=== PATIENT | female | born 1980 | race Caucasian/White ===

== ENCOUNTER 2017-12-25 13:55 | Inpatient (IN) | payer OTHER ==
[~2017-12-25] VITALS: Ht 172.7 cm; Wt 73.9 kg
[2017-12-25] MEDS ORDERED: SODIUM CHLORIDE 0.9% 1,000 ML IV ONE (14:20)
[2017-12-25] MEDS ORDERED: SODIUM CHLORIDE FLUSH 10ML SYR IVF ONE (14:30)
[2017-12-25] MEDS ORDERED: MORPHINE SULFATE 4 MG/ML, 1ML ONE ×2 (14:55→16:25)
[2017-12-25 14:58] LABS: BASOPHILS # (AUTO) 0.03 x10^3/uL (0-0.1); BASOPHILS % (AUTO) 0 % (0-1); EOSINOPHILS # (AUTO) 0.02 x10^3/uL (0-0.4); EOSINOPHILS % (AUTO) 0 % (1-7); LYMPHOCYTES # (AUTO) 1.51 x10^3/uL (1-3.4); LYMPHOCYTES % (AUTO) 10 % (22-44); MD NO; MEAN CORPUSCULAR HEMOGLOBIN 31.7 pg (27.0-34.8); MEAN CORPUSCULAR VOLUME 96.1 fL (80-100); MEAN PLATELET VOLUME 9.6 fL (7.4-10.4); MONOCYTES # (AUTO) 1.09 x10^3/uL (0.2-0.8); MONOCYTES % (AUTO) 7 % (2-9); NEUTROPHILS # (AUTO) 13.28 x10^3/uL (1.8-6.8); NEUTROPHILS % (AUTO) 83 % (42-75); PLATELET COUNT 155 x10^3/uL (130-400); RED BLOOD COUNT 4.37 x10^6/uL (3.82-5.3); RED CELL DISTRIBUTION WIDTH 12.7 % (9.6-15.2)
[2017-12-25] MEDS: MORPHINE SULFATE 4 MG/ML, 1ML IVPush PRN ×2 (15:01→16:28)
[2017-12-25 15:06] LABS: ALBUMIN 3.3 g/dL (3.4-5.0); ANION GAP 12 mmol/L (5-15); CALCIUM 8.9 mg/dL (8.5-10.1); CHLORIDE 107 mmol/L (98-107)
[2017-12-25 15:07] LABS: CREATININE 0.51 mg/dL (0.55-1.02)
[2017-12-25] MEDS ORDERED: MORPHINE SULFATE 4 MG/ML, 1ML IVPush ONE (16:30)
[2017-12-25 18:44] VITALS: BP 110/74
[2017-12-25] MEDS ORDERED: METHYLERGONOVINE 0.2 MG/ML IM ONE (18:59)
[2017-12-25] MEDS ORDERED: OXYTOCIN 10 UNITS/ML, 1ML ONE ×2 (18:59→19:55)
[2017-12-25] MEDS ORDERED: SILVER NITRATE STICK TP ONE (18:59)
[2017-12-25] MEDS ORDERED: VASOPRESSIN 20 UNIT/ML, 1ML ONE (18:59)
[2017-12-25] MEDS ORDERED: MISOPROSTOL 200 MCG TABLET ONE (18:59)
[2017-12-25] MEDS ORDERED: MIDAZOLAM 1 MG/ML, 2ML ONE (19:04)
[2017-12-25] MEDS ORDERED: FENTANYL PF 100 MCG/2ML ONE (19:05)
[2017-12-25] MEDS ORDERED: PROPOFOL 10 MG/ML, 20ML ONE (19:07)
[2017-12-25] MEDS ORDERED: ROCURONIUM 10MG/ML,5ML ONE (19:07)
[2017-12-25] MEDS ORDERED: SUCCINYLCHOLINE 20 MG/ML, 10ML ONE (19:07)
[2017-12-25] MEDS ORDERED: CEFAZOLIN 1,000 MG ONE ×2 (19:08)
[2017-12-25] MEDS ORDERED: LIDOCAINE 1%, 50ML ONE (19:23)
[2017-12-25] MEDS ORDERED: DEXAMETHASONE 4 MG/ML, 1ML ONE (19:33)
[2017-12-25] MEDS ORDERED: ONDANSETRON ODT 8 MG ONE (19:33)
[2017-12-25] MEDS ORDERED: KETOROLAC 30 MG/1 ML ONE (19:56)
[2017-12-25] MEDS ORDERED: OXYTOCIN 10 UNITS/ML, 1ML IV ONE (20:00)
[2017-12-25] MEDS ORDERED: ACETAMINOPHEN 325 MG TABLET PO PRN (20:00)
[2017-12-25] MEDS ORDERED: morphine SULFATE 10 MG/ML, 1ML IV PRN ×2 (20:00→21:30)
[2017-12-25] MEDS ORDERED: METOPROLOL 1 MG/ML, 5ML IV PRN (20:00)
[2017-12-25] MEDS ORDERED: FENTANYL PF 100 MCG/2ML IV PRN (20:00)
[2017-12-25] MEDS ORDERED: MEPERIDINE/PF 25MG/0.5ML IVPush PRN (20:00)
[2017-12-25] MEDS ORDERED: EPHEDRINE 50 MG/ML, 1ML IVPush PRN (20:00)
[2017-12-25] MEDS ORDERED: LABETALOL 5MG/ML, 20ML IV PRN (20:00)
[2017-12-25] MEDS ORDERED: KETOROLAC 30 MG/1 ML IVPush ONE (20:00)
[2017-12-25] MEDS ORDERED: hydrALAzine 20 MG/ML, 1ML IV PRN (20:00)
[2017-12-25] MEDS ORDERED: OXYcodone 5 MG/5 ML ORAL.SOL UDC PO PRN (20:00)
[2017-12-25] MEDS ORDERED: ALBUTEROL SULFATE 2.5 MG/3 ML NPPB PRN (20:00)
[2017-12-25] MEDS ORDERED: PROMETHAZINE 25 MG/ML, 1ML IV PRN (20:00)
[2017-12-25] MEDS ORDERED: ONDANSETRON 2MG/ML, 2ML IVPush PRN (20:00)
[2017-12-25] MEDS ORDERED: PROMETHAZINE 25 MG SUPP PR ONE (21:30)
[2017-12-25] MEDS ORDERED: ONDANSETRON 2MG/ML, 2ML IV PRN (21:30)
[2017-12-25] MEDS ORDERED: KETOROLAC 30 MG/1 ML IV PRN (21:30)
[2017-12-25] MEDS ORDERED: PROMETHAZINE 25 MG/ML, 1ML IV ONE (21:30)
[2017-12-25] MEDS ORDERED: PROMETHAZINE 12.5 MG SUPP PR ONE (21:30)
[2017-12-25] MEDS ORDERED: OXYcodone/APAP 5/325MG TABLET PO PRN (21:30)
[2017-12-25] MEDS ORDERED: OXYC-302 PO (21:33)
[2017-12-25] MEDS ORDERED: IBUP-1222 PO (21:33)
== END 2017-12-25 22:30 | disposition home or self-care (01) | DRG 770 ==
LOC: ED 16:22 → EDIP 17:24 → 4NOR 18:16 → OBSVTOIN 21:24
PROVIDERS: ADMIT Obstetrics & Gynecology; ATTEND Obstetrics & Gynecology
PROC: 10D17Z9 Manual Extraction of Products of Conception, Retained, Via Natural or Artificial Opening (ICD-10-PCS; principal; 2017-12-25 19:00)
DX: O03.4 Incomplete spontaneous abortion without complication (principal)
CPT/HCPCS: 36415; 76801; 76815; 80048; 82040; 85014; 85018; 85025; 86850; 86900; 86901; 88300; 88305; G0378; J0690; J1100; J1885; J2250; J2704; J3010; J3490; Q0162; J0330; J2210; J2590; J7030

== ENCOUNTER → 2019-09-05 | Outpatient (CLI) | payer OTHER ==
[~2019-09-05] MED LIST: IBUP-1222 PO; OXYC-302 PO
[2019-09-05 14:20] LABS: MEAN CORPUSCULAR HEMOGLOBIN 32.5 pg (27.0-34.8); MEAN CORPUSCULAR HGB CONC 33.1 g/dL (32.4-35.8); MEAN CORPUSCULAR VOLUME 98.4 fL (80-100); MEAN PLATELET VOLUME 9.6 fL (7.4-10.4); PLATELET COUNT 125 x10^3/uL (130-400); RED BLOOD COUNT 4.03 x10^6/uL (3.82-5.3); RED CELL DISTRIBUTION WIDTH 13.5 % (9.6-15.2)
== END | disposition home or self-care (01) ==
LOC: CFH 09:44
PROVIDERS: ATTEND Student in an Organized Health Care Education/Training Program
DX: Z34.82 Encounter for supervision of other normal pregnancy, second trimester (principal); Z3A.00 Weeks of gestation of pregnancy not specified
CPT/HCPCS: 36415; 82950; 85027; 86592

== ENCOUNTER 2019-11-20 10:18 | Outpatient (CLI) | payer OTHER ==
[~2019-11-20] VITALS: Ht 172.7 cm; Wt 81.8 kg
[2019-11-20 10:45] VITALS: BP 118/64
== END 2019-11-20 11:17 | disposition home or self-care (01) ==
LOC: LDOP 10:18
PROVIDERS: ATTEND Student in an Organized Health Care Education/Training Program
DX: O36.8130 Decreased fetal movements, third trimester, not applicable or unspecified (principal); O46.93 Antepartum hemorrhage, unspecified, third trimester; Z3A.38 38 weeks gestation of pregnancy
CPT/HCPCS: 59025; 99211; G0463

== ENCOUNTER 2019-11-24 05:49 | Inpatient (IN) | payer OTHER ==
[~2019-11-24] VITALS: Ht 172.7 cm; Wt 84.0 kg
[2019-11-24] MEDS ORDERED: OXYTOCIN 30U/ 0.9% NaCL 500ML 500 ML IV ONE (05:51)
[2019-11-24] MEDS ORDERED: D5%-LACTATED RINGERS 1,000 ML IV SCH (05:51)
[2019-11-24 05:59] VITALS: BP 121/78
[2019-11-24] MEDS ORDERED: TERBUTALINE 1 MG/ML, 1ML IVPush PRN (06:00)
[2019-11-24] MEDS ORDERED: CALCIUM CARBONATE 500 MG TAB.CHEW PO PRN ×2 (06:00→19:30)
[2019-11-24] MEDS ORDERED: ONDANSETRON 2MG/ML, 2ML IVPush PRN (06:00)
[2019-11-24] MEDS ORDERED: FENTANYL PF 100 MCG/2ML IV PRN (06:00)
[2019-11-24] MEDS ORDERED: TERBUTALINE 1 MG/ML, 1ML SQ PRN (06:00)
[2019-11-24] MEDS ORDERED: PREN-3 PO (06:05)
[2019-11-24] MEDS: LACTATED RINGERS 1,000 ML IV SCH ×2 (06:12→14:55)
[2019-11-24] MEDS ORDERED: NEWBORN KIT ONE (06:28)
[2019-11-24] MEDS ORDERED: MISOPROSTOL 25 MCG TABLET VG PRN (06:30)
[2019-11-24 06:33] LABS: BASOPHILS # (AUTO) 0.03 x10^3/uL (0-0.1); BASOPHILS % (AUTO) 1 % (0-1); EOSINOPHILS # (AUTO) 0.02 x10^3/uL (0-0.4); EOSINOPHILS % (AUTO) 0 % (1-7); LYMPHOCYTES # (AUTO) 1.26 x10^3/uL (1-3.4); LYMPHOCYTES % (AUTO) 17 % (22-44); MD NO; MEAN CORPUSCULAR HEMOGLOBIN 32.9 pg (27.0-34.8); MEAN CORPUSCULAR HGB CONC 33.9 g/dL (32.4-35.8); MEAN CORPUSCULAR VOLUME 97.1 fL (80-100); MEAN PLATELET VOLUME 8.8 fL (7.4-10.4); MONOCYTES % (AUTO) 11 % (2-9); NEUTROPHILS # (AUTO) 5.13 x10^3/uL (1.8-6.8); NEUTROPHILS % (AUTO) 71 % (42-75); PLATELET COUNT 107 x10^3/uL (130-400); RED BLOOD COUNT 3.98 x10^6/uL (3.82-5.3); RED CELL DISTRIBUTION WIDTH 12.8 % (9.6-15.2)
[2019-11-24] MEDS ORDERED: MISOPROSTOL 25 MCG TABLET ONE (06:34)
[2019-11-24] MEDS ORDERED: OXYTOCIN 30U/ 0.9% NaCL 500ML 500 ML ONE ×2 (06:34→19:13)
[2019-11-24] MEDS ORDERED: OXYTOCIN 30U/ 0.9% NaCL 500ML 500 ML IV PRN (10:18)
[2019-11-24] MEDS ORDERED: MISOPROSTOL 200 MCG TABLET ONE (11:37)
[2019-11-24] MEDS ORDERED: LIDOCAINE 1%, 20ML ONE (11:37)
[2019-11-24] MEDS ORDERED: FENTANYL PF 100 MCG/2ML ONE ×2 (17:21→18:20)
[2019-11-24] MEDS: FENTANYL PF 100 MCG/2ML IVPush PRN ×2 (17:25→18:26)
[2019-11-24] MEDS ORDERED: IBUPROFEN 600 MG TABLET ONE (19:13)
[2019-11-24] MEDS: IBUPROFEN 600 MG TABLET PO PRN (19:14)
[2019-11-24] MEDS: OXYTOCIN 30U/ 0.9% NaCL 500ML 500 ML IV SCH (19:15)
[2019-11-24] MEDS ORDERED: ONDANSETRON 2MG/ML, 2ML IV PRN (19:30)
[2019-11-24] MEDS ORDERED: ACETAMINOPHEN 325 MG TABLET PO PRN (19:30)
[2019-11-24] MEDS ORDERED: SIMETHICONE 80 MG CHEW TAB PO PRN (19:30)
[2019-11-24] MEDS ORDERED: MISOPROSTOL 200 MCG TABLET PR PRN (19:30)
[2019-11-24] MEDS ORDERED: DOCUSATE 100 MG CAPSULE PO PRN (19:30)
[2019-11-24 20:35] VITALS: BP 112/72
[2019-11-24 20:50] LABS: ALANINE AMINOTRANSFERASE 13 U/L (12-78); ALBUMIN 2.5 g/dL (3.4-5.0); ANION GAP 10 mmol/L (5-15); CHLORIDE 109 mmol/L (98-107); CREATININE 0.63 mg/dL (0.55-1.02)
[2019-11-24 20:52] LABS: ALKALINE PHOSPHATASE 93 U/L (45-117); BILIRUBIN,TOTAL 0.5 mg/dL (0.2-1.0); TOTAL PROTEIN 5.4 g/dL (6.4-8.2)
[2019-11-24 21:11] LABS: CULTURE INDICATED? YES; MICROSCOPIC INDICATED
[2019-11-25 00:23] VITALS: BP 129/82
[2019-11-25] MEDS: IBUPROFEN 600 MG TABLET PO PRN (02:20)
[2019-11-25] MEDS: OXYTOCIN 30U/ 0.9% NaCL 500ML 500 ML IV SCH ×2 (03:31→15:15)
[2019-11-25 05:15] VITALS: BP 99/66
[2019-11-25 06:08] LABS: BASOPHILS # (AUTO) 0.05 x10^3/uL (0-0.1); BASOPHILS % (AUTO) 0 % (0-1); EOSINOPHILS # (AUTO) 0.01 x10^3/uL (0-0.4); EOSINOPHILS % (AUTO) 0 % (1-7); LYMPHOCYTES # (AUTO) 1.42 x10^3/uL (1-3.4); LYMPHOCYTES % (AUTO) 12 % (22-44); MD SCAN; MEAN CORPUSCULAR HEMOGLOBIN 32.3 pg (27.0-34.8); MEAN CORPUSCULAR HGB CONC 32.8 g/dL (32.4-35.8); MEAN CORPUSCULAR VOLUME 98.2 fL (80-100); MEAN PLATELET VOLUME 8.6 fL (7.4-10.4); MONOCYTES # (AUTO) 1.12 x10^3/uL (0.2-0.8); MONOCYTES % (AUTO) 10 % (2-9); NEUTROPHILS # (AUTO) 8.92 x10^3/uL (1.8-6.8); NEUTROPHILS % (AUTO) 78 % (42-75); PLATELET COUNT 91 x10^3/uL (130-400); RED BLOOD COUNT 3.54 x10^6/uL (3.82-5.3)
[2019-11-25 07:42] VITALS: BP 117/72
[2019-11-25] MEDS ORDERED: PRENATAL VIT/IRON/FA 1 EACH TABLET PO SCH (09:00)
[2019-11-25] MEDS ORDERED: IBUP-1223 PO (12:09)
[2019-11-25 14:26] VITALS: BP 110/64
== END 2019-11-25 18:10 | disposition home or self-care (01) | DRG 807 ==
LOC: LDIP 05:49 → 2NW 20:25
PROVIDERS: ADMIT Student in an Organized Health Care Education/Training Program; ATTEND Student in an Organized Health Care Education/Training Program
PROC: 10E0XZZ Delivery of Products of Conception, External Approach (ICD-10-PCS; principal; 2019-11-24)
PROC: 10907ZC Drainage of Amniotic Fluid, Therapeutic from Products of Conception, Via Natural or Artificial Opening (ICD-10-PCS; 2019-11-24)
PROC: 3E033VJ Introduction of Other Hormone into Peripheral Vein, Percutaneous Approach (ICD-10-PCS; 2019-11-24)
PROC: 0HQ9XZZ Repair Perineum Skin, External Approach (ICD-10-PCS; 2019-11-24)
PROC: 3E0R3BZ Introduction of Anesthetic Agent into Spinal Canal, Percutaneous Approach (ICD-10-PCS; 2019-11-24)
PROC: 00HU33Z Insertion of Infusion Device into Spinal Canal, Percutaneous Approach (ICD-10-PCS; 2019-11-24)
PROC: 0U7C7ZZ Dilation of Cervix, Via Natural or Artificial Opening (ICD-10-PCS; 2019-11-24)
DX: O99.12 Other diseases of the blood and blood-forming organs and certain disorders involving the immune mechanism complicating childbirth (principal); Z37.0 Single live birth; D69.6 Thrombocytopenia, unspecified; Z3A.39 39 weeks gestation of pregnancy; Z83.3 Family history of diabetes mellitus; O70.0 First degree perineal laceration during delivery
CPT/HCPCS: 36415; 80053; 81001; 82570; 84156; 85025; 86592; 86850; 86900; 87086; G0378; J3010; J2590; J7120